=== PATIENT | female | born 1975 | race Caucasian/White ===

== ENCOUNTER → 2016-11-24 | Outpatient (CLI) | payer OTHER ==
[~2016-11-24] MED LIST: GADOBUTROL 7.5 MMOL/7.5 ML (GADAVIST) VIAL IV ONE
--- NOTE | 2016-11-24 12:41 | Diagnostic Imaging Report ---
PROCEDURE: MR imaging of the brain with and without contrast. TECHNIQUE: Multiplanar, multisequence MR imaging of the brain was performed with and without contrast. INDICATION: Vision changes. 6 mL of Gadavist is administered intravenously. FINDINGS: There is no diffusion restriction to suggest an acute infarct or other diffusion abnormality. The brain parenchyma demonstrates normal johnson and white matter signal. There is no demyelinating lesion, brain edema or mass. No abnormal enhancement in the brain parenchyma or extra-axial space. There is normal size of the lateral ventricles. The pituitary gland is normal in size. No hypothalamic or pineal region mass. The internal auditory canals and inner ear structures appear symmetric. The central vascular flow-voids appear unremarkable. The orbits, and the paranasal sinuses appear grossly unremarkable. IMPRESSION: No acute infarct or enhancing mass. Unremarkable exam. Dictated by: Dictated on workstation # [id number]
== END ==
LOC: RAD 07:26
PROVIDERS: ATTEND Nurse Practitioner Family
DX: Z01.818 Encounter for other preprocedural examination (principal); H54.7 Unspecified visual loss
CPT/HCPCS: 70553

== ENCOUNTER → 2017-08-20 | Outpatient (CLI) | payer OTHER ==
--- NOTE | 2017-08-20 18:07 | Diagnostic Imaging Report ---
INDICATION: Screening mammogram. COMPARISON: 10/24/2015. TECHNIQUE: Digital screening mammography was obtained of bilateral breasts with a Computer-Aided Detection (CAD) system and three-dimensional tomosynthesis. FINDINGS: Breast tissue is heterogeneously dense but stable. There are no masses or suspicious calcifications. IMPRESSION: Stable screening mammogram. No malignancy. ACR BI-RADS Category 1: Negative. Result letter will be mailed to the patient. Note: At least 10% of breast cancer is not imaged by mammography. Dictated by: Dictated on workstation # [id number]
== END ==
LOC: RAD 07:15
PROVIDERS: ATTEND Nurse Practitioner
DX: Z12.31 Encounter for screening mammogram for malignant neoplasm of breast (principal)
CPT/HCPCS: 77067